=== PATIENT | female | born 1960 | race Hispanic/Latino ===

== ENCOUNTER → 2017-08-18 | Outpatient (CLI) | payer OTHER ==
[~2017-08-18] MED LIST: FURO20TA4 PO; POTA99TA17 PO
== END | disposition home or self-care (01) ==
LOC: RAH 12:25
PROVIDERS: ATTEND Internal Medicine Hematology & Oncology
DX: R07.81 Pleurodynia (principal); Z85.3 Personal history of malignant neoplasm of breast
CPT/HCPCS: 78306; A9503

== ENCOUNTER → 2018-03-16 | Outpatient (CLI) | payer OTHER | END | disposition home or self-care (01) | LOC: RAH 13:46 | PROVIDERS: ATTEND Internal Medicine Hematology & Oncology | DX: N64.89 Other specified disorders of breast (principal); Z85.3 Personal history of malignant neoplasm of breast; Z17.0 Estrogen receptor positive status [ER+] | CPT/HCPCS: 76641; 77065 ==

== ENCOUNTER → 2018-04-03 | Outpatient (CLI) | payer OTHER ==
[~2018-04-03] MED LIST changes: +LIDOCAINE 1%-EPI 1:100,000 20 ML VIAL IJ ONE; +LIDOCAINE HCL 1% 20 ML VIAL ONE; +SODIUM BICARB 50MEQ 50ML VIAL ONE
[2018-04-03 08:58] LABS: INR 0.95 (0.85-1.15); PARTIAL THROMBOPLASTIN TIME 27.6 SEC (26.3-35.5)
== END | disposition home or self-care (01) ==
LOC: RAH 07:56
PROVIDERS: ATTEND Internal Medicine Hematology & Oncology
DX: C50.911 Malignant neoplasm of unspecified site of right female breast (principal); R92.0 Mammographic microcalcification found on diagnostic imaging of breast; I48.91 Unspecified atrial fibrillation; I11.9 Hypertensive heart disease without heart failure; E11.9 Type 2 diabetes mellitus without complications; Z98.890 Other specified postprocedural states; Z79.899 Other long term (current) drug therapy
CPT/HCPCS: 19083; 36415; 85610; 85730; 88305; A4215 ×3; J3490 ×2

== ENCOUNTER 2019-08-21 13:47 | Inpatient (IN) | payer OTHER ==
[~2019-08-21] VITALS: Ht 147.3 cm; Wt 66.2 kg
[~2019-08-21 13:47] MED LIST changes: -LIDOCAINE 1%-EPI 1:100,000 20 ML VIAL IJ ONE; -LIDOCAINE HCL 1% 20 ML VIAL ONE; -SODIUM BICARB 50MEQ 50ML VIAL ONE
[2019-08-21 15:00] VITALS: BP 114/77
[2019-08-21] MEDS ORDERED: ACETAMINOPHEN 325 MG TAB PO PRN (15:30)
[2019-08-21] MEDS ORDERED: ONDANSETRON HCL 4 MG/2 ML VIAL IVP PRN (15:30)
[2019-08-21] MEDS ORDERED: MORPHINE SULFATE 2 MG/ML 1ML SYG IVP PRN (15:30)
[2019-08-21 15:56] LABS: BASOPHILS % (AUTO) 0.2 % (0.0-5.0); EOSINOPHILS % (AUTO) 0.5 % (0.0-8.0); HEMATOCRIT 37.4 % (36-48); LYMPHOCYTES % (AUTO) 20.5 % (21.0-51.0); MEAN CORPUSCULAR HEMOGLOBIN 29.3 pg (27.0-33.0); MEAN CORPUSCULAR HGB CONC 32.9 g/dL (32.0-36.0); MONOCYTES % (AUTO) 9.8 % (3.0-13.0); NEUTROPHILS % (AUTO) 68.8 % (40.0-77.0); PLATELET COUNT (AUTO) 226 K/uL (130-400); WHITE BLOOD COUNT (AUTO) 4.2 K/uL (4.8-10.8)
[2019-08-21 16:11] LABS: ALBUMIN 2.8 g/dL (3.5-5.0); BILIRUBIN,TOTAL 0.2 mg/dL (0.2-1.0); CREATININE 0.8 mg/dL (0.5-1.5); POTASSIUM 4.7 mmol/L (3.5-5.1); TOTAL PROTEIN, SERUM 6.7 g/dL (6.0-8.3)
[2019-08-21] MEDS: SODIUM CHLORIDE 0.9% 1000ML 1,000 ML IV SCH (17:13)
[2019-08-21] MEDS: VANCOMYCIN 1GM+NS 250ML 250 ML IV SCH (17:13)
[2019-08-21] MEDS: ZOSYN 3.375GM+NS 50ML 50 ML IV SCH (19:55)
[2019-08-21 20:07] VITALS: BP 125/65
[2019-08-21 23:38] VITALS: BP 117/69
[2019-08-22] MEDS: SODIUM CHLORIDE 0.9% 1000ML 1,000 ML IV SCH ×3 (02:02→19:51)
[2019-08-22 04:00] VITALS: BP 116/69
[2019-08-22] MEDS: ZOSYN 3.375GM+NS 50ML 50 ML IV SCH ×3 (04:07→19:51)
[2019-08-22 07:30] VITALS: BP 122/72
[2019-08-22 11:00] VITALS: BP 120/71
--- NOTE | 2019-08-22 11:16 | NUR ---
[facility] CM spoke to daughter Chantal, discussed dc plan. Per daughter, pt is independent prior to admission, 2 daughters lives w/pt at home. Denies any equipments/services. Feels safe to go back home, daughters and family able to assist with transportation and needs as necessary. DC plan to home once pt is stable. CM to cont to follow up. Addendum: 08/22/19 at 1117 by SHANE COELLO LVN CM Amended: Links added.
[2019-08-22] MEDS ORDERED: IOHEXOL-350 50ML VIAL IV ONE (13:48)
[2019-08-22] MEDS: VANCOMYCIN 1GM+NS 250ML 250 ML IV SCH (15:59)
[2019-08-22 16:00] VITALS: BP 131/80
[2019-08-22 20:00] VITALS: BP 124/78
[2019-08-23] VITALS: BP 113/74
[2019-08-23 04:53] VITALS: BP 123/77
[2019-08-23] MEDS: ZOSYN 3.375GM+NS 50ML 50 ML IV SCH ×3 (05:11→20:37)
[2019-08-23] MEDS: SODIUM CHLORIDE 0.9% 1000ML 1,000 ML IV SCH ×3 (06:46→20:43)
[2019-08-23 07:30] VITALS: BP 128/90
[2019-08-23 11:00] VITALS: BP 130/82
--- NOTE | 2019-08-23 12:30 | NUR ---
DR. VALENTE IN TO SEE PT. NO NEW ORDERS, PLAN TO DISCHARGE 08/24/19
[2019-08-23 14:41] LABS: HEMATOCRIT 38.2 % (36-48); MEAN CORPUSCULAR HEMOGLOBIN 29.2 pg (27.0-33.0); MEAN CORPUSCULAR HGB CONC 32.5 g/dL (32.0-36.0); MEAN CORPUSCULAR VOLUME 90.1 fL (79-99); PLATELET COUNT (AUTO) 232 K/uL (130-400); RED BLOOD CELL COUNT(AUTO) 4.24 MIL/uL (4.00-5.50); RED CELL DISTRIBUTION WIDTH 13.1 % (11.0-15.5); WHITE BLOOD COUNT (AUTO) 5.3 K/uL (4.8-10.8)
[2019-08-23 15:12] LABS: BASOPHILS % (MANUAL) 1 % (0-2); EOSINOPHILS % (MANUAL) 2 % (1-6); LYMPHOCYTES % (MANUAL) 24 % (22-44); MAN.DIFF COMMENT-IMPRESSION MANUAL DIFFERENTIAL; MONOCYTES % (MANUAL) 9 % (2-9); REACTIVE LYMPHOCYTES 4 % (0-0); SEGMENTED NEUTROPHILS % 60 % (40-70)
[2019-08-23 15:13] LABS: PLATELET MORPHOLOGY COMMENT ADEQUATE
[2019-08-23 16:00] VITALS: BP 136/76
[2019-08-23] MEDS: VANCOMYCIN 1GM+NS 250ML 250 ML IV SCH (16:51)
[2019-08-23 20:57] VITALS: BP 139/83
[2019-08-24 00:35] VITALS: BP 126/80
[2019-08-24 04:00] VITALS: BP 125/79
[2019-08-24] MEDS: ZOSYN 3.375GM+NS 50ML 50 ML IV SCH ×2 (05:01→12:01)
[2019-08-24 08:53] VITALS: BP 127/85
[2019-08-24] MEDS: SODIUM CHLORIDE 0.9% 1000ML 1,000 ML IV SCH (12:02)
[2019-08-24 12:52] VITALS: BP 134/84
--- NOTE | 2019-08-24 14:00 | NUR ---
discharge PATIENT GIVEN DISCHARGE INSTRUCTIONS AND EDUCATION ON FOLLOW UP APPOINTMENTS AND NEW PRESCRIBED MEDICATIONS. PATIENT VERBALIZED UNDERSTANDING OF ALL EDUCATION GIVEN VIA TEACH BACK. IV DISCONTINUED, CATHETER INTACT. NO DISTRESS NOTED UPON DISCHARGE. ALL BELONGINGS TAKEN WITH,
== END 2019-08-24 14:30 | disposition home or self-care (01) | DRG 872 ==
LOC: EDH 13:47 → EDHIP 13:48 → 3DH 14:35
PROVIDERS: ADMIT Internal Medicine Hematology & Oncology; ATTEND Internal Medicine Hematology & Oncology
DX: A41.9 Sepsis, unspecified organism (principal); L03.313 Cellulitis of chest wall; C79.2 Secondary malignant neoplasm of skin; C78.00 Secondary malignant neoplasm of unspecified lung; C79.51 Secondary malignant neoplasm of bone; C77.9 Secondary and unspecified malignant neoplasm of lymph node, unspecified; C50.919 Malignant neoplasm of unspecified site of unspecified female breast; Z90.10 Acquired absence of unspecified breast and nipple; R53.81 Other malaise
CPT/HCPCS: 36415; 71260; 80053; 85025; 87040; G0378; J2543; J3370; J7030; Q9967